=== PATIENT | female | born 1955 | race Caucasian/White ===

== ENCOUNTER 2019-04-25 23:24 | Emergency (ER) | payer BC, OTHER ==
[~2019-04-25] VITALS: Ht 160 cm; Wt 113.4 kg
[2019-04-25 23:30] VITALS: BP_SYST 154
[2019-04-26] MEDS ORDERED: DIPHENHYDRAMINE HCL 25 MG CAPSULE PO ONE (00:30)
[2019-04-26 00:47] VITALS: BP_SYST 154
== END 2019-04-26 00:45 | disposition home or self-care (01) ==
LOC: SED 23:24
DX: L29.9 Pruritus, unspecified (principal); R05 Cough; T37.8X5A Adverse effect of other specified systemic anti-infectives and antiparasitics, initial encounter; T39.8X5A Adverse effect of other nonopioid analgesics and antipyretics, not elsewhere classified, initial encounter; I10 Essential (primary) hypertension; M19.90 Unspecified osteoarthritis, unspecified site; Z90.49 Acquired absence of other specified parts of digestive tract; Z90.89 Acquired absence of other organs; Y92.89 Other specified places as the place of occurrence of the external cause
CPT/HCPCS: 99282; Q0163

== ENCOUNTER 2019-10-15 08:07 | Day surgery (SDC) | payer OTHER ==
[~2019-10-15] VITALS: Ht 160 cm; Wt 117.0 kg
[2019-10-15] MEDS ORDERED: ROCURONIUM BROMIDE 10 MG/ML (ZEMURON) IV ONE (11:20)
[2019-10-15] MEDS ORDERED: fentaNYL CITRATE 250 MCG/5 ML AMP IV ONE (11:20)
[2019-10-15] MEDS ORDERED: NS IRRIG SOLN 1000 ML IR ONE (11:20)
[2019-10-15] MEDS ORDERED: NS 1000 ML IV.SOLN IV ONE (11:20)
[2019-10-15] MEDS ORDERED: DEXAMETHASONE SOD PHOSPHATE 4 MG/ML VIAL IVP ONE (11:20)
[2019-10-15] MEDS ORDERED: ONDANSETRON HCL 4 MG/2 ML VIAL IVP ONE (11:20)
[2019-10-15] MEDS ORDERED: KETOROLAC TROMETHAMINE 30 MG VIAL IVP ONE (11:20)
[2019-10-15] MEDS ORDERED: PROPOFOL 200MG/ 20ML VIAL (DIPRIVAN) IV ONE (11:20)
[2019-10-15] MEDS ORDERED: SEVOFLURANE 15 MIN GAS INH ONE (11:20)
[2019-10-15] MEDS ORDERED: MIDAZOLAM HCL 5 MG/5 ML VIAL IVP ONE (11:20)
[2019-10-15] MEDS ORDERED: SUCCINYLCHOLINE CHLORIDE 20 MG/ML(QUELICIN) IVP ONE (11:20)
[2019-10-15] MEDS ORDERED: IBUPROFEN 800 MG TABLET PO PRN (12:15)
[2019-10-15] MEDS ORDERED: OXYCODONE/ACETAMINOPHEN 5-325 TABLET PO PRN ×2 (12:15)
[2019-10-15] MEDS ORDERED: ONDANSETRON HCL 4 MG/2 ML VIAL IVP PRN (12:15)
[2019-10-15 13:53] VITALS: BP_SYST 123
[2019-10-15] MEDS ORDERED: OXYCODONE/ACETAMINOPHEN 5-325 TABLET ONE (14:20)
== END 2019-10-15 15:00 | disposition home or self-care (01) ==
LOC: SDS 08:07 → SMU 08:07 → SDS 15:00
PROVIDERS: ATTEND Obstetrics & Gynecology
DX: N95.0 Postmenopausal bleeding (principal); N84.0 Polyp of corpus uteri; I10 Essential (primary) hypertension; E66.01 Morbid (severe) obesity due to excess calories; E11.9 Type 2 diabetes mellitus without complications; E78.5 Hyperlipidemia, unspecified; G43.909 Migraine, unspecified, not intractable, without status migrainosus; M47.22 Other spondylosis with radiculopathy, cervical region; M19.049 Primary osteoarthritis, unspecified hand; M19.011 Primary osteoarthritis, right shoulder; F41.9 Anxiety disorder, unspecified; Z88.0 Allergy status to penicillin; Z88.1 Allergy status to other antibiotic agents; Z88.2 Allergy status to sulfonamides; Z68.42 Body mass index [BMI] 45.0-49.9, adult; M85.80 Other specified disorders of bone density and structure, unspecified site; Z90.49 Acquired absence of other specified parts of digestive tract
CPT/HCPCS: 88305; C1819; J0330; J1100; J1885; J2250; J2405; J2704; J3010; J7030; J7120